=== PATIENT | female | born 1950 | race Caucasian/White ===

== ENCOUNTER → 2017-11-28 | Outpatient (CLI) | payer MEDICARE ==
[~2017-11-28] MED LIST: ALPRAZOLAM; ATARAX 25MG25 MG/TAB PO; BENTYL 10MG10 MG/CAP PO; BUDEPRION SR150 M1 PO; CEPHALEXIN500 M1 PO; FLEXERIL5 MG PO; GAS RELIEF MAX PO; KLOR-CON 1010 MEQ PO; LEVAQUIN 5500 MG/TA1 PO; LEVOTHYROXINE PO; LEVOXYL0.05 MG PO; LEVOXYL0.075 MG PO; MIRALAX PA17 GM/Dose PO; NORCO 325 MG-51 TAB PO; NORCO 325 MG-7.1 TAB PO; PERCOCET 325 MG1 TA2 PO; SEROQUEL 2525 MG/TAB PO; TUSS PO; WELLBUTRIN SR150 M1; WELLBUTRIN SR150 M1 PO; XANAX 0.5MG0.5 MG PO; ZANTAC 150MG T150 MG PO; ZITHROMAX 250M250 MG PO; ZOLOFT100 MG PO; ZYRTEC 10MG10 MG PO
== END ==
LOC: COL.RAD 13:34
DX: S63.592A Other specified sprain of left wrist, initial encounter (principal); M19.032 Primary osteoarthritis, left wrist
CPT/HCPCS: A9585; Q9967

== ENCOUNTER 2018-05-16 04:45 | Emergency (ER) | payer MEDICARE ==
[~2018-05-16] VITALS: Ht 160 cm; Wt 57.7 kg
[2018-05-16 06:44] LABS: GRAN # 2.8 (1.4-6.5); HEMOGLOBIN 11.5 g/dl (12.5-16.0); LYMPH # 0.5 (1.2-3.4); LYMPH % 13.1 % (20.0-51.0); MEAN CELL VOLUME 92 fl (80.0-100.0); MEAN CORPUSCULAR HEMOGLOBIN 31 pg (27.0-31.0); MEAN CORPUSCULAR HGB CONC 33 g/dl (33.0-37.0); MONO # 0.2 (0.1-0.6); MONO % 6.6 % (1.7-9.3); PLATELET COUNT 165 K/mm3 (130-400); RED BLOOD COUNT 3.76 M/mm3 (4.10-5.30)
[2018-05-16 06:46] LABS: HEMATOCRIT 34.7 % (37.0-47.0)
[2018-05-16 06:57] LABS: ALBUMIN 2.9 gm/dL (3.5-5.0); BILIRUBIN,TOTAL 0.3 mg/dL (0.0-1.0); C-REACTIVE PROTEIN 1.2 mg/dL (0.0-0.9); CALCIUM 7.5 mg/dL (8.4-10.2); CREATININE, serum 0.75 mg/dL (0.52-1.25); POTASSIUM 3.6 mmol/L (3.4-5.0); TOTAL PROTEIN 5.3 gm/dL (6.4-8.2)
[2018-05-16 07:31] LABS: COLLECTION METHOD CLEAN CATCH
[2018-05-16 07:38] LABS: PH 6 (5-8); SQUAMOUS EPITHELIAL 0-2 /hpf; URINE APPEARANCE Clear; URINE BACTERIA None Seen /hpf; URINE BILIRUBIN Negative (NEGATIVE); URINE BLOOD Negative (NEGATIVE); URINE COLOR Yellow; URINE GLUCOSE Negative (NEGATIVE); URINE KETONE Negative (NEGATIVE); URINE LEUKOCYTE ESTERASE Negative (NEGATIVE); URINE NITRATE Negative (NEGATIVE); URINE PROTEIN(semi-quant) Negative (NEGATIVE); URINE RBC 0-2 /hpf; URINE UROBILINOGEN Negative (NEGATIVE)
[2018-05-16] MEDS ORDERED: TAMIFLU 75MG75 MG PO (08:52)
[2018-05-16 09:44] VITALS: BP 90/50; PULSE 75; TEMP 100
== END 2018-05-16 09:42 | disposition home or self-care (01) ==
LOC: COL.ER 04:45
PROVIDERS: Emergency Medicine
DX: R50.9 Fever, unspecified (principal); R10.9 Unspecified abdominal pain; K58.9 Irritable bowel syndrome, unspecified; Z90.710 Acquired absence of both cervix and uterus; Z90.89 Acquired absence of other organs; Z85.048 Personal history of other malignant neoplasm of rectum, rectosigmoid junction, and anus
CPT/HCPCS: J7030; Q9967

== ENCOUNTER 2020-11-14 08:03 | Day surgery (SDC) | payer MEDICARE ==
[~2020-11-14] VITALS: Ht 160 cm; Wt 59.5 kg
[~2020-11-14 08:03] MED LIST changes: +TAMIFLU 75MG75 MG PO
[2020-11-14] MEDS ORDERED: GAS AID MAXIMU125 MG PO (08:52)
[2020-11-14] MEDS ORDERED: ONE-A-DAY ESSE1 EACH PO (08:56)
[2020-11-14 08:59] VITALS: BP 117/82; PULSE 81; TEMP 97.8
[2020-11-14] MEDS ORDERED: ZOFRAN 4MG T4 MG/TAB PO (09:04)
[2020-11-14 10:12] VITALS: BP 114/61; PULSE 72; TEMP 97
--- NOTE | 2020-11-14 10:12 | NUR ---
Patient returned to [facility] [address] via cart, transfered to chair and is reclined. Postop vital signs started. Patient denies discomfort, request coffee and muffin. Will continue to monitor.
[2020-11-14 10:30] VITALS: BP 117/62; PULSE 82
--- NOTE | 2020-11-14 10:30 | NUR ---
Patient sitting up in chair, denies discomfort. Vital signs remain stable. Tolerating food and drink well. Denies any symptoms of hypoglycemia. Will continue to monitor.
[2020-11-14 10:45] VITALS: BP 122/69; PULSE 80
--- NOTE | 2020-11-14 10:45 | NUR ---
Patient sitting up in chair, denies discomfort. Tolerating food and drink well. Vital signs remain stable. Patient up to bathroom, able to void.
--- NOTE | 2020-11-14 11:20 | NUR ---
Discontinued port with no complications. Instructed patient to dress and call for transportation.
--- NOTE | 2020-11-14 11:35 | NUR ---
Patient transfered to personal vehicle via wheelchair by Rd[facility] HORN.
[2020-11-14 12:06] VITALS: BP 112/64; PULSE 70
== END 2020-11-14 11:35 | disposition home or self-care (01) ==
LOC: SDCO 08:03
DX: Z12.11 Encounter for screening for malignant neoplasm of colon (principal); D12.3 Benign neoplasm of transverse colon; D12.0 Benign neoplasm of cecum; K62.89 Other specified diseases of anus and rectum; K62.4 Stenosis of anus and rectum; K21.9 Gastro-esophageal reflux disease without esophagitis; M19.90 Unspecified osteoarthritis, unspecified site; K58.9 Irritable bowel syndrome, unspecified; N18.2 Chronic kidney disease, stage 2 (mild); G43.909 Migraine, unspecified, not intractable, without status migrainosus; E07.9 Disorder of thyroid, unspecified; G47.419 Narcolepsy without cataplexy; D70.9 Neutropenia, unspecified; F32.9 Major depressive disorder, single episode, unspecified; F41.9 Anxiety disorder, unspecified; Z85.048 Personal history of other malignant neoplasm of rectum, rectosigmoid junction, and anus; Z20.822 Contact with and (suspected) exposure to COVID-19; Z79.899 Other long term (current) drug therapy; Z79.890 Hormone replacement therapy; Z85.6 Personal history of leukemia
CPT/HCPCS: J1644; J2704; J7030

== ENCOUNTER → 2021-04-17 | Outpatient (CLI) | payer MEDICARE ==
[~2021-04-17] MED LIST changes: +GAS AID MAXIMU125 MG PO; +ONE-A-DAY ESSE1 EACH PO; +ZOFRAN 4MG T4 MG/TAB PO
== END ==
LOC: COL.RAD 04-15 10:15
DX: M79.641 Pain in right hand (principal)
CPT/HCPCS: J3301; Q9967

== ENCOUNTER → 2021-09-29 | Outpatient (CLI) | payer MEDICARE | LOC: COL.CARD 13:00 | DX: R42 Dizziness and giddiness (principal); R55 Syncope and collapse ==

== ENCOUNTER → 2021-10-08 | Outpatient (CLI) | payer MEDICARE | LOC: COL.RAD 09:55 | DX: M18.11 Unilateral primary osteoarthritis of first carpometacarpal joint, right hand (principal) | CPT/HCPCS: J3301; Q9967 ==

== ENCOUNTER → 2023-05-04 | Outpatient (CLI) | payer MEDICARE ==
[~2023-05-04] MED LIST changes: +ZOFRAN ODT4 MG PO
== END ==
LOC: COL.RAD 08:30
DX: M18.11 Unilateral primary osteoarthritis of first carpometacarpal joint, right hand (principal)
CPT/HCPCS: J0665; J3301; Q9967